=== PATIENT | male | born 1965 | race Caucasian/White ===

== ENCOUNTER 2017-07-31 03:07 | Emergency (ER) | payer SELFPAY | END 2017-07-31 04:30 | disposition home or self-care (01) | LOC: ERS 03:07 | DX: S02.2XXA Fracture of nasal bones, initial encounter for closed fracture (principal); S12.400A Unspecified displaced fracture of fifth cervical vertebra, initial encounter for closed fracture; S12.500A Unspecified displaced fracture of sixth cervical vertebra, initial encounter for closed fracture; S31.119A Laceration without foreign body of abdominal wall, unspecified quadrant without penetration into peritoneal cavity, initial encounter; I10 Essential (primary) hypertension; F17.220 Nicotine dependence, chewing tobacco, uncomplicated; Z79.899 Other long term (current) drug therapy; V94.89XA Other water transport accident, initial encounter | CPT/HCPCS: 99283; G0390 ==